=== PATIENT | female | born 1945 | race Caucasian/White ===

== ENCOUNTER 2024-08-30 11:57 | Emergency (ER) | payer MEDICARE, SELFPAY ==
[2024-08-30] VITALS (16 sets, daily range): BP systolic 136–192; BP diastolic 62–91; PULSE 60–74; RESP 15–29; TEMP 36.2; O2SAT 92–100; BMI 25.1
--- NOTE | 2024-08-30 12:06 | EKG_ITS ---
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
--- NOTE | 2024-08-30 12:06 | DI.RAD.S_ITS ---
PROCEDURE: XR CHEST 1V INDICATIONS: chest pain TECHNIQUE: One view of the chest was acquired. COMPARISON: None. FINDINGS: Surgical changes and devices: None. Lungs and pleura: Lungs are clear. No pleural effusions or pneumothorax. Mediastinum: Mediastinal contours appear normal. Heart size is normal. Bones and chest wall: No suspicious bony lesions. Overlying soft tissues appear unremarkable. IMPRESSION: No acute cardiopulmonary abnormality is seen. Dictated by: Jacob Angelo M.D. on 08/30/2024 at 13:18 Approved by: Jacob Angelo M.D. on 08/30/2024 at 13:19
[2024-08-30 12:32] LABS: Add Manual Diff / Slide Review NO; Basophils Absolute Auto 100 /uL (0-100); Eosinophils Absolute Auto 0 /uL (0-450); Eosinophils Percent Auto 0.5 % (2-4); Hematocrit 37.9 % (36-46); Hemoglobin 12.5 g/dL (12.0-16.0); INR 0.9 (0.9-1.3); Lymphocytes Absolute Auto 900 /uL (1100-4500); Lymphocytes Percent Auto 12.4 % (25-40); Mean Corpuscular Hemoglobin 26.8 PG (26-34); Mean Corpuscular Volume 81.2 fL (80-100); Monocytes Absolute Auto 600 /uL (0-900); Monocytes Percent Auto 7.5 % (3-14); Neutrophils Absolute Auto 5800 /uL (1500-7000); Neutrophils Percent Auto 78.6 % (50-75); Platelet Count 324 X10^3/uL (150-400); Prothrombin Time 10.4 SECONDS (9.4-12.5); Red Blood Cell Count 4.67 X10^6/uL (4.0-5.2); Red Cell Distribution Width 15.4 % (11.6-14.8); White Blood Cell Count 7.4 X10^3/uL (4.5-11.0)
[2024-08-30 12:35] LABS: PTT Partial Thromboplastin Tim 35 SECONDS (25.1-36.5)
[2024-08-30 12:37] LABS: Alanine Aminotransferase 17 IU/L (<35); Albumin 4.6 g/dL (3.5-5.0); Albumin Globulin Ratio 1.5 (1.0-2.8); Alkaline Phosphatase 90 U/L (38-126); Aspartate Aminotransferase 31 IU/L (14-36); BUN Creatinine Ratio 19.7 (6-22); Bilirubin Total 0.6 mg/dL (0.2-1.3); Blood Urea Nitrogen 15 mg/dL (7-17); Calcium 9.6 mg/dL (8.4-10.2); Carbon Dioxide 26 mmol/L (22-32); Chloride 100 mmol/L (98-107); Creatine Kinase 36 U/L (30-135); Estimated Glomerular Filt Rate > 60 mL/min (>60); Glucose 101 mg/dL (80-110); HEMOLYSIS < 15 (0-50); Lipase 67 U/L (23-300); Potassium 3.3 mmol/L (3.4-5.1); Sodium 135 mmol/L (137-145); Total Protein 7.6 g/dL (6.3-8.2)
[2024-08-30] MEDS: ASPIRIN 81 MG CHEW TAB 324 MG PO (12:46)
[2024-08-30 12:48] LABS: NT-proBNP (BNP-Adult 18+) 164 pg/mL (<450); Troponin I < 0.012 ng/mL (0.01-0.034)
--- NOTE | 2024-08-30 15:26 | EKG_ITS ---
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
[2024-08-30] MEDS: POTASSIUM CHLORIDE 20 MEQ TAB 40 MEQ PO (15:40)
--- NOTE | 2024-08-30 16:13 | ED.CHESTPAIN ---
HPI - Chest Pain General Chief Complaint: Chest Pain Stated Complaint: px left arm and back of shoulder, sob Time Seen by Provider: 08/30/24 15:16 Source: patient, RN notes reviewed and old records reviewed Mode of arrival: Ambulatory Limitations: no limitations History of Present Illness HPI narrative: This is a 79-year-old history of hypertension, dyslipidemia, chronic home O2 particularly for sleep or when lying flat who presents with complaint of left shoulder pain radiating down her arm sometimes with some numbness and tingling. Patient states it does not really radiate to her chest, she describes any shortness of breath. Did feel little bit lightheaded earlier today. 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 Notes little bit of headache. No syncope. She denies any nausea or vomiting. Denies any diaphoresis. Patient states she has had some chronic diarrhea with no new changes. She started having symptoms yesterday has had them in the past but very intermittent for brief seconds. She notes that she traveled yesterday back from [place] after bearing her son. That is seem to exacerbate her symptoms. She states she takes medication for hypertension dyslipidemia, borderline diabetic no aspirin or thinners, no known myocardial infarction. Has a prior hysterectomy, bariatric Adolfo-en-Y surgery about 13 years ago. Allergic to sulfa. Quit smoking around age 40, has alcohol intermittently sometimes 1 or 2 drinks daily but sometimes not at all. No recreational drugs. Does have home O2 for sleep and when she is resting. She has had pulmonary function testing and told she might have intrinsic lung disease and has follow up with pulmonology, Dr. Brooke this week. Patient states she has been taking Tylenol for the pain which has been helpful. Related Data Previous Rx's Medication Instructions Recorded hydrocodone 5 mg-acetaminophen 325 1 tab PO Q6H PRN pain #10 tabs 08/30/24 mg tablet Allergies Allergy/AdvReac Type Severity Reaction Status Date / Time Sulfa (Sulfonamide Allergy Verified 08/30/24 12:28 Antibiotics) Review of Systems Review of Systems ROS Unobtainable: All systems reviewed & are unremarkable except as noted in HPI and below Patient History Social History Smoking Status: Former smoker Smoking Status: Former smoker alcohol intake frequency: holidays/special occasions only Substance Use Type: does not use Exam Narrative Exam Narrative: GENERAL: Alert and oriented x three, early female in mild distress HEENT: Head normocephalic, atraumatic, EOMI, pupils reactive, face symmetric, moist mucous membranes NECK: Supple, full range of motion CARDIOVASCULAR: Regular rate and rhythm without murmurs, rubs or gallops. RESPIRATORY: Breath sounds equal bilaterally, no wheezes rales or rhonchi. No JVD. No edema bilateral upper or lower extremities. ABDOMEN: Soft, nontender. Normoactive bowel sounds all 4 quadrants. No guarding or rebound, rigidity, no mass : No CVA tenderness EXTREMITIES: Normal range of motion, no clubbing or edema. Neurovascularly intact. 2+ pulses bilateral upper extremities. NEUROLOGICAL: Cranial nerves II through XII grossly intact. Moving all extremities SKIN: Warm, dry, no petechiae, no rashes or lesions. Initial Vital Signs Initial Vital Signs: Vital Signs Temperature 97.2 F L 08/30/24 12:02 Pulse Rate 74 08/30/24 12:02 Respiratory Rate 24 08/30/24 12:02 Blood Pressure 192/91 H 08/30/24 12:02 Pulse Oximetry 100 08/30/24 12:02 Oxygen Delivery Method Room Air 08/30/24 12:02 Course Orders Ordered: Discontinued Medications Hydrocodone Bitart/Acetaminophen (Hydrocodone/Acet 5/325 Tablet) 1 tab PO NOW ONE Stop: 08/30/24 16:45 Last Admin: 08/30/24 17:25 Dose: Not Given Documented By: CINDY Aspirin (Aspirin 81 Mg Chew Tab) 324 mg PO NOW ONE Stop: 08/30/24 12:07 Last Admin: 08/30/24 12:46 Dose: 324 mg Documented By: DIOR Potassium Chloride (Potassium Chloride 20 Meq Tab) 40 meq PO NOW ONE Stop: 08/30/24 15:17 Last Admin: 08/30/24 15:40 Dose: 40 meq Documented By: DIOR Vital Signs Vital signs: Vital Signs - 8 hr 08/30/24 12:02 08/30/24 12:12 08/30/24 12:26 Temperature 97.2 F L Pulse Rate 74 65 Respiratory Rate 24 Blood Pressure 192/91 H 187/81 H Pulse Oximetry 100 98 Oxygen Delivery Method Room Air 08/30/24 12:26 08/30/24 12:30 08/30/24 12:30 Temperature Pulse Rate 60 61 Respiratory Rate 28 H 29 H Blood Pressure 163/77 H Pulse Oximetry 95 100 Oxygen Delivery Method Room Air 08/30/24 13:00 08/30/24 13:01 08/30/24 13:01 Temperature Pulse Rate 63 61 Respiratory Rate 23 23 Blood Pressure 144/66 H Pulse Oximetry 98 99 Oxygen Delivery Method Room Air Room Air 08/30/24 13:30 08/30/24 13:30 08/30/24 14:00 Temperature Pulse Rate 63 66 Respiratory Rate 23 19 Blood Pressure 145/68 H Pulse Oximetry 97 92 Oxygen Delivery Method 08/30/24 14:01 08/30/24 14:01 08/30/24 14:31 Temperature Pulse Rate 66 Respiratory Rate 16 Blood Pressure 149/69 H 156/72 H Pulse Oximetry 95 Oxygen Delivery Method 08/30/24 14:31 08/30/24 15:00 08/30/24 15:01 Temperature Pulse Rate 71 69 Respiratory Rate 22 17 Blood Pressure 151/65 H Pulse Oximetry 97 95 Oxygen Delivery Method Room Air Room Air 08/30/24 15:01 08/30/24 15:30 08/30/24 15:30 Temperature Pulse Rate 68 66 Respiratory Rate 20 16 Blood Pressure 154/63 H Pulse Oximetry 97 96 Oxygen Delivery Method Room Air 08/30/24 16:00 08/30/24 16:00 Temperature Pulse Rate 66 Respiratory Rate 22 Blood Pressure 136/62 Pulse Oximetry 99 Oxygen Delivery Method MDM - Chest Pain Lab Data 08/30/24 12:17 08/30/24 12:17 Labs: Lab Results 08/30/24 08/30/24 Range/Units 12:17 15:40 WBC 7.4 (4.5-11.0) X10^3/uL RBC 4.67 (4.0-5.2) X10^6/uL Hgb 12.5 (12.0-16.0) g/dL Hct 37.9 (36-46) % MCV 81.2 (80-100) fL MCH 26.8 (26-34) PG MCHC 33.0 (30-36) % RDW 15.4 H (11.6-14.8) % Plt Count 324 (150-400) X10^3/uL Neut % (Auto) 78.6 H (50-75) % Lymph % (Auto) 12.4 L (25-40) % [place] % (Auto) 7.5 (3-14) % Eos % (Auto) 0.5 L (2-4) % Baso % (Auto) 1.0 (0-2) % Neut # (Auto) 5800 (3524-4529) /uL Lymph # (Auto) 900 L (4484-0606) /uL [place] # (Auto) 600 (0-900) /uL Eos # (Auto) 0 (0-450) /uL Baso # (Auto) 100 (0-100) /uL PT 10.4 (9.4-12.5) SECONDS INR 0.9 (0.9-1.3) APTT 35 (25.1-36.5) SECONDS Sodium 135 L (137-145) mmol/L Potassium 3.3 L (3.4-5.1) mmol/L Chloride 100 (98-107) mmol/L Carbon Dioxide 26 (22-32) mmol/L BUN 15 (7-17) mg/dL Creatinine 0.76 (0.52-1.04) mg/dL Estimated GFR > 60 (>60) mL/min BUN/Creatinine Ratio 19.7 (6-22) Glucose 101 (80-110) mg/dL Calcium 9.6 (8.4-10.2) mg/dL Magnesium 2.0 (1.6-2.3) mg/dL Total Bilirubin 0.6 (0.2-1.3) mg/dL AST 31 (14-36) IU/L ALT 17 (<35) IU/L Alkaline Phosphatase 90 (38-126) U/L Total Creatine Kinase 36 (30-135) U/L Troponin I < 0.012 < 0.012 (0.01-0.034) ng/mL NT-Pro-B Natriuret Pep 164 (<450) pg/mL Total Protein 7.6 (6.3-8.2) g/dL Albumin 4.6 (3.5-5.0) g/dL Globulin 3.0 (1.7-4.1) g/dL Albumin/Globulin Ratio 1.5 (1.0-2.8) Lipase 67 (23-300) U/L Imaging Data Chest x-ray: Radiologist's Impression: [address] [address] XRay Report Signed Patient: Sarah Schultz MR#: [id number] : 1945 Acct:[id number] Age/Sex: 79 / F Date of Service: 08/30/24 Loc: ED Accession Number: [id number] Procedure: XR chest 1V Ordering Provider: Samira Serna D.O. PROCEDURE: XR CHEST 1V INDICATIONS: chest pain TECHNIQUE: One view of the chest was acquired. COMPARISON: None. FINDINGS: Surgical changes and devices: None. Lungs and pleura: Lungs are clear. No pleural effusions or pneumothorax. Mediastinum: Mediastinal contours appear normal. Heart size is normal. Bones and chest wall: No suspicious bony lesions. Overlying soft tissues appear unremarkable. IMPRESSION: No acute cardiopulmonary abnormality is seen. Dictated by: Jacob Angelo M.D. on 08/30/2024 at 13:18 Approved by: Jacob Angelo M.D. on 08/30/2024 at 13:19 ECG Data Attestation: I personally reviewed and interpreted this ECG as follows: Interpretation: Sinus rhythm first-degree AV block rate of 62 [place] 2-4 QRS 80 QTC of 410, patient does have some motion artifact in initial leads 1 2 and 3. EKG 2. Appears similar, rate of 62 [place] 208 QRS 86 QTC of 393, no acute ST elevation depression. [facility] Narrative Medical decision making narrative: 79-year-old female with complaint of left shoulder pain radiating down her arm there is some paresthesias and numbness and tingling associated makes musculoskeletal seem more likely. She states it does not really radiate to her chest denies any shortness of breath did feel little bit lightheaded. Has a history of hypertension or dyslipidemia. Did have long distance driving her vehicle after bearing her son in [place] over the weekend. She does note symptoms seemed a little bit worse with movement but can be present even when still. Chest x-ray is negative EKG shows sinus rhythm with first-degree AV block, rate in the 60s on both with no dynamic changes noted. Labs show white count of 7.4 hemoglobin 12.5 platelets of 324. Coags are negative, sodium is 135 potassium 3.3 this was replaced orally, electrolytes are otherwise appropriate with a BUN of 15 creatinine 0.76, LFTs are negative, CK is 36 troponins less than 0.012 with a BNP of 164. Repeat troponin less than 0.012. Discussed with patient vital signs seem less suggestive for pulmonary emboli but is on differential, she defers D-dimer or CT imaging at this time. Discussed risks versus benefits but patient feels comfortable deferring. Patient's potassium replaced orally. Patient notes she was chronically low, she has not really dropped below 3.3 in the past. She will occasionally get cramping and does try to eat salmon regularly, potatoes and bananas when she feels like she was low. After discussion plan for discharge home, patient was given a dose of [place] here we will give a short course prescription medication with follow-up. Patient is going to see pulmonology later this week. Discharge Plan Departure Patient Disposition: Home Clinical Impression: Hypokalemia, Left shoulder pain Activity Restrictions/Additional Instructions: Please follow up for recheck. Your potassium slightly low at 3.3 Your workup today is overall reassuring but we have not ruled out pulmonary emboli if you are having persistent pain with increasing shortness of breath, any hemoptysis or other new changes please return for evaluation. You can take narcotic pain medication 1 tablet every 6 hours as needed for pain. Prescription sent to Please return for new or worsening chest pain, shortness of breath, lightheadedness or passing out, coughing up blood, new swelling in extremities or other new or concerning changes. Prescriptions: New hydrocodone-acetaminophen 5-325 mg tablet 1 tab PO Q6H PRN (Reason: pain) Qty: 10 0RF Referrals: Jacinta Dueñas ARNP [Primary Care Provider] - Stand Alone Forms: Patient Portal/API/Survey
[2024-08-30 16:15] LABS: Troponin I < 0.012 ng/mL (0.01-0.034)
== END 2024-08-30 17:25 | disposition home or self-care (01) ==
PROVIDERS: Emergency Provider Emergency Medicine; PCP Nurse Practitioner Family
DX: E87.6 Hypokalemia (principal); M25.512 Pain in left shoulder; R42 Dizziness and giddiness; I44.0 Atrioventricular block, first degree
CPT/HCPCS: 36415; 71045; 80053; 82550; 83690; 83735; 83880; 84484; 85025; 85610; 85730; 93005; 99284

== ENCOUNTER → 2024-09-22 08:35 | Outpatient (CLI) | payer MEDICARE, SELFPAY | LOC: RESP 08:35 | PROVIDERS: PCP Nurse Practitioner Family; Referring Provider Internal Medicine Critical Care Medicine; Visit Provider Internal Medicine Critical Care Medicine | DX: R06.02 Shortness of breath (principal); Z87.891 Personal history of nicotine dependence; R94.2 Abnormal results of pulmonary function studies; Z87.09 Personal history of other diseases of the respiratory system | CPT/HCPCS: 94060; 94726; 94729 ==